=== PATIENT | male | born 1985 | race Caucasian/White ===

== ENCOUNTER 2017-01-08 18:15 | Emergency (ER) | payer OTHER ==
[~2017-01-08 18:15] MED LIST: BACTRIM DS TABL1 TAB PO; KEFLEX PO; LORCET 10/650 T1 TAB PO; LORTAB 7.5-5001 TAB PO; NAPROSYN500 MG PO; ULTRAM PO; VICODIN 5/500 T1 TAB PO; VICODIN PO; ZOFRAN PO
== END 2017-01-08 18:20 | disposition left against medical advice (07) ==
LOC: CED 18:15
DX: Z53.21 Procedure and treatment not carried out due to patient leaving prior to being seen by health care provider (principal)

== ENCOUNTER 2017-03-05 18:20 | Emergency (ER) | payer OTHER | END 2017-03-05 19:53 | disposition left against medical advice (07) | LOC: CED 18:20 | DX: T40.1X1A Poisoning by heroin, accidental (unintentional), initial encounter (principal); J45.909 Unspecified asthma, uncomplicated; Z79.899 Other long term (current) drug therapy; Z86.19 Personal history of other infectious and parasitic diseases | CPT/HCPCS: 99282 ==